=== PATIENT | female | born 1965 | race Caucasian/White ===

== ENCOUNTER → 2018-11-25 09:13 | Outpatient (CLI) | payer BC, SELFPAY ==
--- NOTE | 2018-11-25 09:22 | US_ITS ---
US abdomen limited HISTORY: Upper abdominal pain and bloating. After eating. GE reflux history as well. ORDERING PHYSICIAN: Jocelyne Arreaga PATIENT AGE: 53 years Comparison: Previous ultrasound upper abdomen RUQ 10/13/2012 Procedure Sagittal, transverse and decubitus imaging of the gallbladder was performed. === Findings GALLBLADDER - No stones are evident.Trace sludge the gallbladder Perhaps mildly distended measuring just over 10 seem in length but not tense or inflamed . No gallbladder wall thickening nor inflammation evident Common duct normal diameter. Up to 3.4 mm at hilum of liver. Liver: Diffuse fatty changes of the liver but no focal lesion. No intrahepatic biliary ductal dilatation. Portal vein satisfactory. Pancreas: Well-visualized at head, body, and medial tail. Unremarkable Right kidney: Right kidney appears normal measuring 10.5 seem in length. No hydronephrosis nor mass. Cortex well-maintained. IMPRESSION:... 1. No gallstones evident. Only Scant sludge and debris Gallbladder mildly distended but no wall thickening and does not appear to be inflamed, and was not tender 2. Fatty changes in liver.
== END ==
PROVIDERS: PCP Family Medicine; Visit Provider Nurse Practitioner Family
DX: R14.0 Abdominal distension (gaseous) (principal)
CPT/HCPCS: 76705

== ENCOUNTER 2020-03-15 13:15 | Emergency (ER) | payer BC, SELFPAY ==
[2020-03-15 13:55] VITALS: BP 146/91; PULSE 87; RESP 19; TEMP 36.6; O2SAT 98; BMI 32.9
--- NOTE | 2020-03-15 14:33 | HMH.EDUTC ---
[facility] [place] Disposition Clinical Impression: Encounter for laboratory testing for COVID-19 virus Foreign body in foot Qualifiers: Encounter type: initial encounter Laterality: right Qualified Code(s): S90.851A - Superficial foreign body, right foot, initial encounter Disposition: Home, Self-Care Condition on Discharge: Good Instructions: Azithromycin, Preventing the Spread of Coronavirus Discharge Instructions Additional Instructions: Keep area on foot clean and dry GO home and self isolate, call back to the [facility] in the next 48-72 hours for your test results Return if needed Straight to ER if any life threatening symptoms Prescriptions: Azithromycin [Z-Berto 250mg Tab] 250 mg PO DIRECTED #6 tab Transmission Status: Sent to [id number] Referrals: Arianne Lindo [Primary Care Provider] - As needed Time of Disposition: 14:38 Medical Decision Making - Mario Inquiry Pt receiving controlled substance: No Mario was queried for this patient: No Vital Signs: 03/15/20 13:55 Temperature 97.9 F Temperature Source Oral Pulse Rate [Radial] 87 Respiratory Rate 19 Blood Pressure [Right Arm] 146/91 H Blood Pressure Mean [Right Arm] 109 Blood Pressure Source [Right Arm] Automatic Cuff Blood Pressure Position [Right Arm] Sitting 02 Sat by Pulse Oximetry 98 Oxygen Delivery Method Room Air Orders (Tests/Meds): ORDERS Category Date Time Status SARS-CoV-2, DAGO Stat Lab 03/15/20 13:30 Received [facility] [place] HPI - General Stated complaint: covid test, right foot Time Seen by Provider: 03/15/20 14:33 Mode of Arrival: Ambulatory Source of Information: Patient Limitations: No Limitations Description of Symptoms (Recalled from Triage Doc. by RN): covid test and right foot cut on glass 1 week ago HEENT Symptoms (Recalled from RN notes): No Resp Symptoms (Recalled from RN notes): No Skin Symptoms (Recalled from RN notes): Yes MS Symptoms (Recalled from RN notes): No Functional Status (Recalled from RN notes): wnl - History of Present Illness Provider Complaint: Patient states that she stepped on glass about a week ago and thinks she may still have a small piece in the side of her right foot States that it is sore and feels like something is in there States that also she wants to get checked for COVID States that her tested positive earlier in the week and now she has a naggy cough and feels like she is loosing her sense of smell and taste - Related Data Previous Rx's Medication Instructions Recorded Brompheniramine/Pseudoephed/Dm 10 ml PO QID PRN #240 ml 03/17/18 [Bromfed DM Cough Syrup 5mL] Fluticasone Propionate [Flonase 2 spr NS DAILY #1 bottle 03/17/18 50mcg nasal spray 16gm] Cefdinir [Omnicef 300mg Capsule] 300 mg PO BID #20 cap 11/07/18 Fluticasone Propionate [Flonase 2 spr NS DAILY #1 bottle 11/07/18 50mcg nasal spray 16gm] Azithromycin [Z-Berto 250mg Tab] 250 mg PO DIRECTED #6 tab 03/15/20 Allergies Allergy/AdvReac Type Severity Reaction Status Date / Time Penicillins Allergy Intermediate Hives Verified 03/17/18 09:19 - Worker's Comp Is this a Worker's Comp case?: No [facility] History - Hepatitis A Screen Drug use history?: No High risk sexual behaviors?: No History of sexually transmitted infection?: No Currently employed?: No Childcare worker?: No Do you have indoor plumbing?: Yes Do you have electricity?: Yes Attestation statement:: This patient has been screened for Hepatitis A risk factors. I have reviewed the patient's past medical history: Yes Medical History: Reports:: Diabetes Mellitus Type 2 (diet and exercise controlled), Lung Disease (asthma as child) Denies:: Cancer, Diabetes Mellitus Type 1, Hypertension, Internal Pacemaker, MRSA, Seizures Other Medical History: Denies: Blood Transfusion Reaction Laterality Cases: Left: Arthroscopy Knee Other Surgeries: Yes: Other (pilonidal cystectomy, diag. lap). No: Pacemaker Amputation: No Fractures: No - Soci
[2020-03-15 14:53] VITALS: BP 146/91; PULSE 87; RESP 19; TEMP 36.6; O2SAT 98
[2020-03-16 14:21] LABS: Covid-19 Nasal PCR Sendout Lex Positive
== END 2020-03-15 14:54 | disposition home or self-care (01) ==
PROVIDERS: Emergency Provider Nurse Practitioner; PCP Family Medicine
DX: S90.851A Superficial foreign body, right foot, initial encounter (principal); U07.1 COVID-19; E11.9 Type 2 diabetes mellitus without complications; Z79.899 Other long term (current) drug therapy; W22.8XXA Striking against or struck by other objects, initial encounter
CPT/HCPCS: 10120; 99201; U0004

== ENCOUNTER 2020-04-05 13:02 | Emergency (ER) | payer BC, SELFPAY ==
[2020-04-05 13:27] VITALS: BMI 32.9
[2020-04-05 13:32] VITALS: BP 147/85; PULSE 73; RESP 20; TEMP 36.9; O2SAT 97; BMI 32.9
--- NOTE | 2020-04-05 13:47 | HMH.EDUTC ---
[facility] [place] Disposition Clinical Impression: Encounter for laboratory testing for COVID-19 virus Disposition: Home, Self-Care Condition on Discharge: Good Instructions: Preventing the Spread of Coronavirus Discharge Instructions Additional Instructions: Drink plenty of fluids. Take tylenol or ibuprofen for pain or fever. Follow up with your regular doctor. GO TO THE ER FOR ANY WORSENING SYMPTOMS FOLLOW THE DIRECTIONS ON THE COVID-19 HAND OUT THAT WE GAVE YOU REGARDING SELF-ISOLATION UNTIL YOU KNOW YOUR COVID-19 RESULTS Referrals: Arianne Lindo [Primary Care Provider] - Forms: Work/School Release Time of Disposition: 13:48 Medical Decision Making - Medical Records Medical records reviewed: No: I reviewed the patient's medical records. - Mario Inquiry Pt receiving controlled substance: No Vital Signs: 04/05/20 13:32 04/05/20 13:51 Temperature 98.4 F 98.4 F Temperature Source Oral Pulse Rate 73 Pulse Rate [Left Brachial] 73 Respiratory Rate 20 20 Blood Pressure 147/85 H Blood Pressure [Left Arm] 147/85 H Blood Pressure Mean [Left Arm] 105 Blood Pressure Source [Left Arm] Automatic Cuff Blood Pressure Position [Left Arm] Sitting 02 Sat by Pulse Oximetry 97 Oxygen Delivery Method Room Air Orders (Tests/Meds): ORDERS Category Date Time Status Coronavirus 19 Swab (OUTPT) Routine Lab 04/05/20 13:[address] [facility] [place] HPI - General Stated complaint: covid test -previously poitive Time Seen by Provider: 04/05/20 13:35 Mode of Arrival: Ambulatory Source of Information: Patient Limitations: No Limitations Description of Symptoms (Recalled from Triage Doc. by RN): PATIENT TESTED POSITIVE FOR COVID APPROX 2 WEEKS AGO, REQUESTING A COVID TEST TO SEE IF SHE IS NEGATIVE. DENIES ANY CURRENT SYMPTOMS HEENT Symptoms (Recalled from RN notes): No Resp Symptoms (Recalled from RN notes): No Skin Symptoms (Recalled from RN notes): No MS Symptoms (Recalled from RN notes): No Functional Status (Recalled from RN notes): WNL - History of Present Illness Provider Complaint: She states that her work needs a negative COVID-19 test before she is allowed to return to work. She denies ever running a fever or having significant symptoms from the COVID-19. - Related Data Previous Rx's Medication Instructions Recorded Brompheniramine/Pseudoephed/Dm 10 ml PO QID PRN #240 ml 03/17/18 [Bromfed DM Cough Syrup 5mL] Fluticasone Propionate [Flonase 2 spr NS DAILY #1 bottle 03/17/18 50mcg nasal spray 16gm] Cefdinir [Omnicef 300mg Capsule] 300 mg PO BID #20 cap 11/07/18 Fluticasone Propionate [Flonase 2 spr NS DAILY #1 bottle 11/07/18 50mcg nasal spray 16gm] Azithromycin [Z-Berto 250mg Tab] 250 mg PO DIRECTED #6 tab 03/15/20 Allergies Allergy/AdvReac Type Severity Reaction Status Date / Time Penicillins Allergy Intermediate Hives Verified 03/17/18 09:19 - Worker's Comp Is this a Worker's Comp case?: No [facility] History - Hepatitis A Screen Drug use history?: No High risk sexual behaviors?: No History of sexually transmitted infection?: No Currently employed?: No Childcare worker?: No Do you have indoor plumbing?: Yes Do you have electricity?: Yes Attestation statement:: This patient has been screened for Hepatitis A risk factors. I have reviewed the patient's past medical history: Yes Medical History: Reports:: Diabetes Mellitus Type 2 (diet and exercise controlled), Lung Disease (asthma as child) Denies:: Cancer, Diabetes Mellitus Type 1, Hypertension, Internal Pacemaker, MRSA, Seizures Other Medical History: Denies: Blood Transfusion Reaction Laterality Cases: Left: Arthroscopy Knee Other Surgeries: Yes: Other (pilonidal cystectomy, diag. lap). No: Pacemaker Amputation: No Fractures: No - Social History Smoking Status: Never smoker Alcohol Intake: never Occupational Status: other Housing: house Household Members: spouse Family Hx:: No significant family history
[2020-04-05 13:51] VITALS: BP 147/85; PULSE 73; RESP 20; TEMP 36.9; O2SAT 97
--- NOTE | 2020-04-05 17:07 | PC.NURSE ---
PATIENT NOTIFIED OF POSITIVE COVID-19 RESULT
== END 2020-04-05 13:55 | disposition home or self-care (01) ==
PROVIDERS: Emergency Provider Nurse Practitioner Family; PCP Family Medicine
DX: U07.1 COVID-19 (principal); E11.9 Type 2 diabetes mellitus without complications
CPT/HCPCS: 99201; U0003

== ENCOUNTER 2020-04-25 13:08 | Emergency (ER) | payer BC, SELFPAY ==
[2020-04-25 13:39] VITALS: BP 138/85; PULSE 77; RESP 20; TEMP 36.7; O2SAT 98; BMI 32.9
--- NOTE | 2020-04-25 13:57 | HMH.EDUTC ---
[facility] [place] Disposition Clinical Impression: Left otitis media Qualifiers: Otitis media type: suppurative Chronicity: acute Recurrence: non-recurrent Spontaneous tympanic membrane rupture: without spontaneous rupture Qualified Code(s): H66.002 - Acute suppurative otitis media without spontaneous rupture of ear drum, left ear Sinusitis Qualifiers: Sinusitis location: unspecified location Chronicity: acute Recurrence: non-recurrent Qualified Code(s): J01.90 - Acute sinusitis, unspecified Disposition: Home, Self-Care Condition on Discharge: Good Instructions: Allergic Rhinitis, DI for Sinusitis, DI for Allergic Rhinitis Additional Instructions: Drink plenty of fluids. Take tylenol or ibuprofen for pain or fever. Take the medications as directed. Follow up with your regular doctor. GO TO THE ER FOR ANY WORSENING SYMPTOMS Prescriptions: Fluticasone Propionate [Flonase 50mcg nasal spray 16gm] 1 spr NS BID 30 Days #1 bottle Transmission Status: Pending to [id number] Azithromycin [Z-Berto 250mg Tab*] 250 mg PO UD DOSE PK #6 tab Transmission Status: Pending to [id number] Referrals: Arianne Lindo [Primary Care Provider] - Time of Disposition: 14:39 Medical Decision Making - Medical Records Medical records reviewed: No: I reviewed the patient's medical records. - Mario Inquiry Pt receiving controlled substance: No Vital Signs: 04/25/20 13:39 Temperature 98.1 F Temperature Source Oral Pulse Rate [Right Brachial] 77 Respiratory Rate 20 Blood Pressure [Right Arm] 138/85 Blood Pressure Mean [Right Arm] 102 Blood Pressure Source [Right Arm] Automatic Cuff Blood Pressure Position [Right Arm] Sitting 02 Sat by Pulse Oximetry 98 Oxygen Delivery Method Room Air Orders (Tests/Meds): ORDERS Category Date Time Status Covid-19 Nasal PCR Sendout Skip Stat Lab 04/25/20 13:41 Received [facility] [place] HPI - General Stated complaint: sinus pressure and covid test Time Seen by Provider: 04/25/20 13:57 Mode of Arrival: Ambulatory Source of Information: Patient Limitations: No Limitations Description of Symptoms (Recalled from Triage Doc. by RN): PATIENT C/O BILATERAL NECK PAIN AND SINUS TENDERNESS X 3 DAYS. STATES SHE PREVIOUS TESTED POSITIVE FOR COVID AND NEEDS 2 NEGATIVES TO RETURN TO WORK HEENT Symptoms (Recalled from RN notes): Yes Resp Symptoms (Recalled from RN notes): No Skin Symptoms (Recalled from RN notes): No MS Symptoms (Recalled from RN notes): No Functional Status (Recalled from RN notes): WNL - History of Present Illness Provider Complaint: She had COVID-19 around 1 month ago. Since then she has got better from that , but she has continued to test positive on the COVID-19 test. Also over the past 2 days, she has been having sinus pressure and left ear pain. She has a history of lots of allergy issues this time of the year. - Related Data Previous Rx's Medication Instructions Recorded Azithromycin [Z-Berto 250mg Tab*] 250 mg PO UD DOSE PK #6 tab 04/25/20 Fluticasone Propionate [Flonase 1 spr NS BID 30 Days #1 bottle 04/25/20 50mcg nasal spray 16gm] Allergies Allergy/AdvReac Type Severity Reaction Status Date / Time Penicillins Allergy Intermediate Hives Verified 03/17/18 09:19 - Worker's Comp Is this a Worker's Comp case?: No [facility] History - Hepatitis A Screen Drug use history?: No High risk sexual behaviors?: No History of sexually transmitted infection?: No Currently employed?: No Childcare worker?: No Do you have indoor plumbing?: Yes Do you have electricity?: Yes Attestation statement:: This patient has been screened for Hepatitis A risk factors. I have reviewed the patient's past medical history: Yes Medical History: Reports:: Diabetes Mellitus Type 2 (diet and exercise controlled), Lung Disease (asthma as child) Denies:: Cancer, Diabetes Mellitus Type 1, Hypertension, Internal Pacemaker, MRSA, Seizures Other Medical History: Denies: Blood Transfusion
[2020-04-25 14:30] VITALS: BP 138/85; PULSE 77; RESP 20; TEMP 36.7; O2SAT 98
[2020-04-27 13:12] LABS: Covid-19 Nasal PCR Sendout Lex Indeterminate
--- NOTE | 2020-04-27 13:18 | PC.NURSE ---
SPOKE WITH PATIENT AND LET HER KNOW THAT PER LAB HER COVID RESULT WAS INCONCLUSIVE AND THAT SHE NEEDED TO COME AND GET SWABBED AGAIN. PATIENT STATES THAT SHE WILL BE HERE TOMORROW. LAB NOTIFIED AT THIS TIME.
== END 2020-04-25 14:31 | disposition home or self-care (01) ==
PROVIDERS: Emergency Provider Nurse Practitioner Family; PCP Family Medicine
DX: H66.002 Acute suppurative otitis media without spontaneous rupture of ear drum, left ear (principal); J01.90 Acute sinusitis, unspecified; U07.1 COVID-19; E11.9 Type 2 diabetes mellitus without complications; Z88.0 Allergy status to penicillin; Z79.899 Other long term (current) drug therapy
CPT/HCPCS: 99201; U0004

== ENCOUNTER → 2020-04-28 16:43 | Outpatient (CLI) | payer BC, SELFPAY ==
[2020-04-30 13:18] LABS: Covid-19 Nasal PCR Sendout Lex Positive
== END ==
PROVIDERS: PCP Family Medicine; Visit Provider Nurse Practitioner
DX: Z20.828 Contact with and (suspected) exposure to other viral communicable diseases (principal); U07.1 COVID-19
CPT/HCPCS: U0004

== ENCOUNTER → 2020-05-08 13:29 | Outpatient (CLI) | payer BC, SELFPAY ==
[2020-05-10 10:16] LABS: Covid-19 Nasal PCR Sendout Lex NOT DETECTED
== END ==
PROVIDERS: PCP Family Medicine; Visit Provider Nurse Practitioner Family
DX: Z03.818 Encounter for observation for suspected exposure to other biological agents ruled out (principal)
CPT/HCPCS: U0004

== ENCOUNTER → 2021-11-04 12:08 | Outpatient (CLI) | payer BC, SELFPAY ==
[2021-11-06 21:07] LABS: QuantiFERON-TB Gold Plus Negative (Negative)
== END ==
PROVIDERS: Visit Provider Nurse Practitioner Family
DX: Z00.00 Encounter for general adult medical examination without abnormal findings (principal)
CPT/HCPCS: 36415; 86480

== ENCOUNTER → 2021-11-11 07:49 | Outpatient (CLI) | payer BC, SELFPAY ==
--- NOTE | 2021-11-11 07:59 | MM_ITS ---
PROCEDURE INFORMATION: Exam: MG Bilateral Screening 3D Mammography Exam date and time: 11/11/2021 8:27 AM Age: 55 years old Clinical indication: Encounter for screening mammogram for malignant neoplasm of breast TECHNIQUE: Imaging protocol: Bilateral Screening tomosynthesis and 2D mammography including computer-aided detection (CAD) when performed. COMPARISON: 1. MG [facility] SCRN MAMMO W/CAD BILAT 12/28/2018 9:21 AM 2. MG [facility] SCRN MAMMO W/CAD BILAT 12/13/2017 10:33 AM FINDINGS: MAMMOGRAPHY: Breast composition: The breast tissue is heterogeneously dense, which may obscure small masses. Mass: None. Architectural distortion: None. Calcifications: No suspicious calcifications. Asymmetric density: None. Skin thickening: None. Axillary adenopathy: None. IMPRESSION: No mammographic evidence of malignancy. Annual screening is recommended unless otherwise clinically indicated. ASSESSMENT: BI-RADS Category 1: Negative
--- NOTE | 2021-11-11 08:00 | US_ITS ---
FINAL REPORT CLINICAL HISTORY: RUQ PAIN,BLOATING FINDINGS: ULTRASOUND RIGHT UPPER QUADRANT Sonographic imaging of the right upper quadrant was obtained. The pancreas is partially obscured. There is a coarsened echotexture to the liver consistent with fatty infiltration. There is a moderate amount of sludge in the gallbladder. There is no gallbladder wall thickening. There is no biliary ductal dilatation. The common duct is normal. Limited images of the right kidney are unremarkable. IMPRESSION: 1. Fatty liver. 2. Moderate amount of sludge in the gallbladder. Reviewed, Interpreted and Dictated by Dom Avendano MD Transcribed by Melissa Madrid Authenticated by Dom Avendano MD on 11/11/2021 11:26:29 AM [facility]
== END ==
LOC: RAD 07:49
PROVIDERS: PCP Family Medicine; Visit Provider Nurse Practitioner Family
DX: R10.11 Right upper quadrant pain (principal); R14.0 Abdominal distension (gaseous); R68.81 Early satiety; Z12.31 Encounter for screening mammogram for malignant neoplasm of breast
CPT/HCPCS: 76705; 77063; 77067

== ENCOUNTER 2022-07-20 08:08 | Emergency (ER) | payer BC, SELFPAY ==
--- NOTE | 2022-07-20 09:08 | EXP.UTC ---
Discharge Plan Disposition Patient Disposition: Home, Self-Care Condition: Good Prescriptions Prescriptions: New azithromycin [Zithromax] 250 mg tablet 250 mg PO UD DOSE PK Qty: 6 0RF Rx Instructions: Take two (2) tablets today, then one (1) tablet days #2 thru #5 benzonatate [benzonatate] 100 mg capsule 100 mg PO TIDP PRN (Reason: Cough) Qty: 30 0RF methylprednisolone 4 mg Tablets,Dose Pack 4 mg PO DIRECTED Qty: 21 0RF No Action azithromycin 250 MG tablet 250 mg PO UD DOSE PK Qty: 6 0RF Rx Instructions: Take two (2) tablets today, then one (1) tablet days #2 thru #5 fluticasone propionate 120 SPR/BOT bottle 1 spr NS BID 30 Days Qty: 1 2RF Referrals Follow up/Referrals: Jocelyne Arreaga [Primary Care Provider] - See instructions Activity Restrictions/Add. Instructions Additional Instructions/Restrictions: Drink plenty of fluids. Take tylenol or ibuprofen for pain or fever. Take the medications as directed. Follow up with your regular doctor. GO TO THE ER FOR ANY WORSENING SYMPTOMS Clinical Impressions Clinical Impression: Sinusitis Stand Alone Forms Stand Alone Forms: Work/School Release Instructions Patient Instructions: DI for Sinusitis, Sinusitis Discharge ED Provider: Ron Trujillo [facility] General Stated complaint: cough, head congestion throat pain Time Seen by Provider: 07/20/22 09:08 History of Present Illness Provider Complaint: She states that for the past 3 days she has had worsening sinus congestion, sore throat and chills. Related Data Previous Rx's Medication Instructions Recorded azithromycin 250 mg tablet 250 mg PO UD DOSE PK #6 tabs 04/25/20 fluticasone propionate 50 1 spr NS BID 30 days ##1 04/25/20 mcg/actuation nasal spray,suspension azithromycin 250 mg tablet 250 mg PO UD DOSE PK #6 tabs 07/20/22 (Zithromax) benzonatate 100 mg capsule 100 mg PO TIDP PRN Cough #30 caps 07/20/22 methylprednisolone 4 mg tablets in 4 mg PO DIRECTED #21 tabs 07/20/22 a dose pack Allergies Allergy/AdvReac Type Severity Reaction Status Date / Time Penicillins Allergy Intermediate Hives Verified 07/20/22 09:20 PFSH PFSH Social History Smoking Status: Never smoker alcohol intake: never current occupational status: other Travel in the last 8 weeks: None household members: spouse housing: house current occupational exposures/hazards: No caffeine: Yes ROS Obtained: Yes All systems reviewed & no additional complaints except as documented Constitutional Constitutional: Reports chills and Reports fever(s) Eyes Eyes: Denies eye discharge ENT Ears, Nose, Mouth, and Throat: Reports as per HPI Cardiovascular Cardiovascular: Denies chest pain Respiratory Respiratory: Denies chest congestion and Reports cough Gastrointestinal Gastrointestingal: Reports nausea; Denies abdominal pain, constipation, cramping, diarrhea or vomiting Musculoskeletal Musculoskeletal: Denies arthralgias Integumentary/Breasts Skin/Breast: Denies rash Neurologic Neurologic: Denies paresthesias Physical Exam General General appearance: alert and in no apparent distress Head Head exam: atraumatic, normocephalic and normal inspection Eye Eye exam: Present normal appearance, PERRL and EOMI ENT ENT exam: Present normal exam, normal oropharynx, mucous membranes moist, TM's normal bilaterally and normal external ear exam Neck Neck exam: Present normal inspection, full ROM and trachea midline; Absent meningismus or lymphadenopathy Chest Chest inspection: Present normal inspection and symmetric chest wall rise; Absent tenderness Respiratory Respiratory exam: Present normal lung sounds bilaterally; Absent respiratory distress Cardiovascular Cardiovascular exam: Present regular rate and normal rhythm; Absent JVD Abdominal Exam Abdominal exam: Present soft and normal bowel sounds; Absent disten
[2022-07-20 09:17] VITALS: BP 143/94; PULSE 97; RESP 16; TEMP 36.8; O2SAT 95; BMI 34.5
[2022-07-20 09:51] VITALS: BP 143/94; PULSE 97; RESP 16; TEMP 36.8
== END 2022-07-20 09:56 | disposition home or self-care (01) ==
PROVIDERS: Emergency Provider Nurse Practitioner Family; PCP Nurse Practitioner Family
DX: J32.9 Chronic sinusitis, unspecified (principal); R05.9 Cough, unspecified
CPT/HCPCS: 99212; G0463

== ENCOUNTER → 2022-09-29 21:41 | Outpatient (CLI) | payer BC, SELFPAY | LOC: LAB 10-02 01:26 → LAB.DROPOF 10-07 08:22 | PROVIDERS: PCP Student in an Organized Health Care Education/Training Program; Visit Provider Student in an Organized Health Care Education/Training Program | DX: J02.9 Acute pharyngitis, unspecified (principal) | CPT/HCPCS: 87070; C9803; U0003; U0005 ==

== ENCOUNTER 2023-09-02 19:00 | Outpatient (CLI) | payer BC, SELFPAY | END 2023-09-02 23:59 | LOC: LAB.DROPOF 19:00 | PROVIDERS: PCP Student in an Organized Health Care Education/Training Program; Visit Provider Student in an Organized Health Care Education/Training Program | DX: J02.9 Acute pharyngitis, unspecified (principal); U07.1 COVID-19 | CPT/HCPCS: 87070; 87635 ==